=== PATIENT | female | born 1970 | race Caucasian/White ===

== ENCOUNTER → 2017-11-26 12:59 | Outpatient (CLI) | payer BC, SELFPAY ==
--- NOTE | 2017-11-26 13:00 | RAD_ITS ---
STUDY: X-RAY CHEST REASON FOR EXAM: Female, 47 years old. Cough, 2 weeks TECHNIQUE: PA and lateral chest COMPARISON: 10/06/2014. FINDINGS: The lungs are clear and expanded. Normal cardiomediastinal silhouette, jerry and pleural margins. No acute osseous or upper abdominal process. RAD/Chest PA and Lateral IMPRESSION: No acute cardiopulmonary process. Electronically Signed: Berto Mahoney, at 13:31 EDT Tel , Service support ,
== END ==
PROVIDERS: Family Provider Internal Medicine; PCP Internal Medicine; Visit Provider Internal Medicine
DX: R05 Cough (principal)
CPT/HCPCS: 71046

== ENCOUNTER → 2020-11-29 10:24 | Outpatient (CLI) | payer BC, SELFPAY ==
[2017-04-27 14:34] VITALS: BMI 33.7
== END ==
PROVIDERS: PCP Internal Medicine; Visit Provider Ophthalmology
DX: H04.129 Dry eye syndrome of unspecified lacrimal gland (principal)
CPT/HCPCS: 36415

== ENCOUNTER 2021-04-24 06:01 | Day surgery (SDC) | payer BC, SELFPAY ==
[2021-04-24] VITALS (7 sets, daily range): BP systolic 97–122; BP diastolic 55–76; PULSE 64–72; RESP 14–106; TEMP 35.9–36.2; O2SAT 97–100; BMI 28.8
[2021-04-24] MEDS: Lactated Ringers 1,000 ML 15 ML IV (06:22)
[2021-04-24 06:30] LABS: Bedside Glucose 111 mg/dL (70-110)
--- NOTE | 2021-04-24 07:00 | IMM_PTH ---
PATIENT: CARINE MANN LOC: EN U#:[id number] AGE/SX: 50/F ROOM: RE04/24/[address]: Dr. Mack Godinez DO : 1970 BED: DIS: 04/24/2021 SPEC #: [id number] RECD: 04/24/21 13:36 STATUS: SOUMerrick REQ #: [id number] MELISA: 04/24/21 07:[address]: Mack Godinez DEPT: IMMUNOHISTOCHEMISTRY RECD BY: Kim Claudio ENTERED: 04/24/21 13:36 SP TYPE: IMMUNO OTHR DR: Dr. Albertina Canela DO Tissues: B - Stomach, NOS Procedures: H Pylori (initial) PHYSICIAN & INSTITUTION [address] [address] SPECIMEN INFORMATION: Tissue Source: B ? Gastric antrum biopsy Clinical Info: Abdominal pain, nausea and vomiting Specimen Number: [id number] CPT code: 88436 METHODOLOGY: Deparaffinized sections of prefer/formalin-fixed tissue or PAP/DQ stained slides are incubated with monoclonal/polyclonal antibodies/oligonucleotide probes. Localization is made via biotin free immunoperoxidase method. Appropriate controls are performed and reacted as expected. Results on target cell population are indicated in the following table: RESULTS: ANTIBODY / CLONE RESULT Block B H Pylori (polyclonal) negative These tests were developed and their performance characteristics determined by [facility]. They may not have been cleared or approved by the U.S. Food and Drug Administration. The FDA has determined that such clearance or approval is not necessary. INTERPRETATION: B. Gastric antrum, biopsy: Negative for Helicobacter pylori organisms. SJ:lesly 04/25/2021
--- NOTE | 2021-04-24 07:00 | EGD_PTH ---
PATIENT: CARINE MANN LOC: EN U#:[id number] AGE/SX: 50/F ROOM: RE04/24/[address]: Dr. Mack Godinez DO : 1970 BED: DIS: 04/24/2021 SPEC #: [id number] RECD: 04/24/21 10:37 STATUS: YOSEPH REQ #: [id number] MELISA: 04/24/21 07:[address]: Mack Godinez DEPT: SURGICAL PATHOLOGY RECD BY: Dior Marrufo ENTERED: 04/24/21 12:23 SP TYPE: EGD BIOPSY OT DR: Dr. Albertina Canela DO Tissues: A - Duodenum, NOS B - Gastric mucous membrane C - Gastric mucous membrane D - Esophagus, NOS E - Gastric mucous membrane F - Ileum, NOS G - COLON BIOPSY Procedures: Special Stain Group II Surgery Specimen Level IV Alcian Blue/PAS (control) HEADER OPERATION: Colonoscopy, EGD ([facility]) PRE-OP DIAGNOSIS: Abdominal pain, nausea and vomiting TISSUE SUBMITTED: A ? Duodenum biopsy, B ? Gastric antrum biopsy for H. pylori and path, C ? Gastric body biopsy, D ? Distal esophagus, E ? Gastric cardia biopsy, F ? Terminal ileum biopsy, G ? Random colon biopsies MICROSCOPIC DIAGNOSIS A. Duodenum, biopsy: Fragments of duodenal mucosa, no pathologic diagnosis. B. Gastric antrum, biopsy: Mild gastritis. See microscopic description and comment. C. Gastric body, biopsy: Mild gastritis. See microscopic description. D. Distal esophagus, biopsy: Fragments of gastroesophageal mucosa with moderate chronic inflammation. Intestinal metaplasia (goblet cell metaplasia) not identified. See comment. E. Gastric cardia, biopsy: Mild gastritis. See microscopic description. F. Terminal ileum, biopsy: Fragments of small intestinal mucosa, no pathologic diagnosis. G. Colon, random biopsy: Fragments of colonic mucosa, no pathologic diagnosis. SJ:lesly 04/25/2021 COMMENT B. The results of immunohistochemistry for Helicobacter pylori will be reported separately ([id number]). D. Alcian blue/PAS stain with matched control is used in the evaluation of the specimen. MICROSCOPIC DESCRIPTION Slides are reviewed. B. The specimen shows fragments of gastric mucosa with chronic inflammatory cell infiltrates in the lamina propria consisting of lymphocytes and plasma cells, consistent with mild chronic gastritis. Focal mucosal congestion is noted. C. The specimen shows fragments of gastric mucosa with chronic inflammatory cell infiltrates in the lamina propria consisting of lymphocytes and plasma cells, consistent with mild chronic gastritis. Focal mucosal congestion and hemorrhage are noted. E. The specimen shows fragments of gastric mucosa with chronic inflammatory cell infiltrates in the lamina propria consisting of lymphocytes and plasma cells, consistent with mild chronic gastritis. Focal mucosal congestion and hemorrhage are noted. GROSS DESCRIPTION A - Received in fixative is one container labeled with the patient's name and designated duodenum biopsy. The specimen consists of multiple irregular fragments of light johnson soft tissue that in aggregate measure 1.5 x 0.5 x 0.1 cm. The specimen is totally submitted in one cassette. B - Received in fixative is one container labeled with the patient's name and designated gastric antrum biopsy. The specimen consists of multiple irregular fragments of light johnson soft tissue that in aggregate measure 0.7 x 0.4 x 0.1 cm. The specimen is totally submitted in one cassette. C - Received in fixative is one container labeled with the patient's name and designated gastric body biopsy. The specimen consists of multiple irregular fragments of light johnson soft tissue that in aggregate measure 0.8 x 0.5 x 0.1 cm. The specimen is totally submitted in one cassette. D - Received in fixative is one container labeled with the patient's name and designated distal esophagus biopsy. The specimen consists of multiple irregular fragments of light johnson soft tissue that in aggregate measure 0.5 x 0.4 x 0.1 cm. The specimen is totally submitted in one cassette. E - Received in fixative is one container labeled with the patient's name and designated gastric cardia biopsy. The specimen consists of multiple irregular fragments of light johnson soft tissue that in aggregate measure 0.6 x 0.5 x .1 cm. The specimen is totally submitted in one cassette. F - Received in fixative is one container labeled with the patient's name and designated terminal ileum biopsy. The specimen consists of multiple irregular fragments of light johnson soft tissue that in aggregate measure 1 x 0.3 x 0.1 cm. The specimen is totally submitted in one cassette. G - Received in fixative is one container labeled with the patient's name and designated random colon biopsy. The specimen consists of multiple irregular fragments of light johnson soft tissue that in aggregate measure 2 x 1 x 0.1 cm. The specimen is totally submitted in one cassette. / AMAIRANI:lesly 04/24/21 TC:3 CPT: 80521 x7, 87790
--- NOTE | 2021-04-24 07:13 | HP.PCM_ITS ---
History and Physical Date of Admission: 04/24/21 50 F who presents to the office today for For the last 8-10 months she has been having difficulty with nausea and vomiting. Nausea and vomiting starts first thing in the morning. She'll get abdominal cramping. BM occurs weekly. Having a hard time with PO intake and medications because of nausea. Reports weight loss based on hose clothes are fitting and how she is feeling. Movement increased nausea. 2004 she had a stroke. 2012 breast cancer treatment, treated with chemotherapy and radiation with lumpectomy and reduction. Taking anastrazole currently, no discussion of stopping. Following this when she bends over she gets nauseous. Neurologist told her to seek more treatment when she started taking Zofran three times a day. Hysterectomy performed 2000 following of final child. Repeat surgery to remove ovary and remove scar tissue that was invading bowel. Had a lot of difficulty with anastrazole with pain and fatigue and bone destruction. Started medical marijuana two years prior to today. She takes two gummies a day and sometimes takes three if it is cold or rainy out. Takes bathes and this makes her feel best. She is having a lot of emotional distress regarding the loss of her mother and brother close together and her aunt is currently in hospice who she is very close to. Recently started trazadone for insomnia. prozac also increased to 40mg. ROS Const Constitutional: Positive for frequent falls, weakness and weight change Eyes Eyes: Positive for blurry vision and eye pain ENT ENT: Positive for hearing loss, tinnitus, nasal congestion and difficulty swallowing Cardio Cardiology: Positive for leg pain with exertion and shortness of breath Gastro GI: Positive for abdominal pain, bloating, change in bowel habits, constipation, heartburn, difficulty swallowing, nausea/dyspepsia and vomiting Musc Musculoskeletal: Positive for abnormal gait, joint pain, back pain, muscle cramps, muscle weakness, stiffness, Arthritis, leg pain at night and leg pain with exertion Neuro Neurology: Positive for abnormal gait, weakness and frequent falls Psych Psychiatric: Positive for anxiety, Positive for depression and Positive for obsessions/compulsions Endo Endocrine: Positive for cold intolerance, heat intolerance, increased thirst/drinking and weight change Exam Const General: cooperative and comfortable Nutritional Appearance: average body habitus and well nourished HENVT Head: normal to inspection Ears: hearing grossly normal bilaterally Nose: external nose normal Face and sinus: normal facial exam Mouth: oral mucosae normal Throat: posterior oropharynx normal Eyes General: appearance normal, both eyes and all related structures Neck Neck: normal visual inspection Chest Chest palpation & inspection: normal inspection of the chest and normal palpation of entire chest wall Resp Effort & Inspection: normal respiratory effort Auscultation: Bilateral: Clear to Auscultation Cardio Palpation: normal PMI Rate: regular rate Rhythm: regular rhythm GI Inspection: normal to inspection Auscultation: normal bowel sounds Percussion: normal to percussion Palpation: no hepatosplenomegaly Skin General: no rashes or lesions noted Neuro General: patient alert Extrem General: normal to inspection Psych Affect: normal affect Quality Reporting Tobacco Screening ([facility] 138) Smoking Status: Never smoker Assessment and Plan Assessment and Plan (1) Abdominal pain: Status: Acute Plan - Dr. Giron Friend, DO: It is possible that her abdominal pain could be functional. She has a lot of reasons to have abdominal pain and will be functional including the of close relatives in September itself can cause a stress gastritis. She does take medical marijuana and I do not think that she has marijuana hyperemesis. But this is in the differential diagnosis. We will look into her upper GI tract to see if there is abnormalities that would lead to a diagnosis in her. In the meantime we will give her medicines for symptomatic abdominal pain. (2) Nausea & vomiting: Status: Acute Plan - Dr. Giron Friend, DO: She has multiple nausea. 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 However, with her history of cancer we should evaluate the upper GI tract to make sure there is distant metastasis as I see breast cancer metastases despite normal imaging. I have re-examined the patient. There are no clinical changes since date of exam.
--- NOTE | 2021-04-24 07:35 | OP.EGD_ITS ---
Patient Name: Ita Souza Procedure Date: 04/24/2021 7:10 AM Date of : 1970 Age: 50 Procedure: Upper GI endoscopy Indications: Dyspepsia Providers: Mack Godinez DO Medicines: See the Anesthesia note for documentation of the administered medications Patient Profile: This is a 50 year old female. Refer to note in patient chart for documentation of history and physical. Patient has symptoms of chronic abdominal cramping, chronic abdominal distention, chronic dyspepsia and chronic nausea. Complications: No immediate complications. Procedure: Pre-Anesthesia Assessment: - Prior to the procedure, a History and Physical was performed, and patient medications and allergies were reviewed. The patient is competent. The risks and benefits of the procedure and the sedation options and risks were discussed with the patient. All questions were answered and informed consent was obtained. Patient identification and proposed procedure were verified by the physician in the pre-procedure area. Mental Status Examination: alert and oriented. Airway Examination: normal oropharyngeal airway and neck mobility. Respiratory Examination: clear to auscultation. CV Examination: normal. Prophylactic Antibiotics: The patient does not require prophylactic antibiotics. Prior Anticoagulants: The patient has taken no previous anticoagulant or antiplatelet agents. After reviewing the risks and benefits, the patient was deemed in satisfactory condition to undergo the procedure. The anesthesia plan was to use moderate sedation / analgesia (conscious sedation). Immediately prior to administration of medications, the patient was re-assessed for adequacy to receive sedatives. The heart rate, respiratory rate, oxygen saturations, blood pressure, adequacy of pulmonary ventilation, and response to care were monitored throughout the procedure. The physical status of the patient was re-assessed after the procedure. After obtaining informed consent, the endoscope was passed under direct vision. Throughout the procedure, the patient's blood pressure, pulse, and oxygen saturations were monitored continuously. The Endoscope was introduced through the mouth, and advanced to the second part of duodenum. The upper GI endoscopy was accomplished without difficulty. The patient tolerated the procedure well. Moderate Sedation: Moderate (conscious) sedation was administered by the endoscopy nurse and supervised by the endoscopist. The patient's oxygen saturation, heart rate, blood pressure and response to care were monitored. Total physician intraservice time was 15 minutes. Scope In: 7:19:59 AM Scope Out: 7:29:40 AM Total Procedure Duration Time 0 hours 9 minutes 41 seconds Findings: LA Grade A (one or more mucosal breaks less than 5 mm, not extending between tops of 2 mucosal folds) esophagitis with no bleeding was found 34 to 35 cm from the incisors. Biopsies were taken with a cold forceps for histology. Verification of patient identification for the specimen was done. Estimated blood loss was minimal. A few localized, 6 mm non-bleeding erosions were found in the cardia. There were no stigmata of recent bleeding. Biopsies were taken with a cold forceps for histology. Verification of patient identification for the specimen was done. Estimated blood loss was minimal. Localized moderate inflammation characterized by congestion (edema), erythema and friability was found in the gastric antrum. Biopsies were taken with a cold forceps for histology. Verification of patient identification for the specimen was done. Estimated blood loss was minimal. Localized prominent gastric folds were found in the gastric body. Biopsies were taken with a cold forceps for histology. Verification of patient identification for the specimen was done. Estimated blood loss was minimal. Scattered moderate inflammation characterized by congestion (edema), erosions and erythema was found in the duodenal bulb, in the first portion of the duodenum, in the second portion of the duodenum and in the third portion of the duodenum. Biopsies were taken with a cold forceps for histology. Verification of patient identification for the specimen was done. Estimated blood loss was minimal. Impression: - LA Grade A reflux esophagitis. Biopsied. - Non-bleeding erosive gastropathy. Biopsied. - Gastritis. Biopsied. - Enlarged gastric folds. Biopsied. - Duodenitis. Biopsied. Recommendation: - Discharge patient to home. - Resume previous diet. - Continue present medications. - Await pathology results. - Repeat upper endoscopy in 1 year for surveillance based on pathology results. - Return to GI office in 1 week. Procedure Code(s): --- Professional --- 86521, Esophagogastroduodenoscopy, flexible, transoral; with biopsy, single or multiple 95068, 59, Moderate sedation services provided by the same physician or other qualified health pulmonary care nurse performing the diagnostic or therapeutic service that the sedation supports, requiring the presence of an independent trained observer to assist in the monitoring of the patient's level of consciousness and physiological status; initial 15 minutes of intraservice time, patient age 5 years or older CPT copyright 2017 [employer]. All rights reserved. The codes documented in this report are preliminary and upon investigative analyst review may be revised to meet current compliance requirements. Mack Godinez DO 04/24/2021 7:34:36 AM This report has been signed electronically. Number of Addenda: 1 Note Initiated On: 04/24/2021 7:10 AM Addendum Number: 1 Addendum Date: 01/01/2022 7:27:27 AM MAC was used instead of moderate sedation for the patient. Mack Godinez DO 01/01/2022 7:27:31 AM This report has been signed electronically.
--- NOTE | 2021-04-24 07:35 | OP.CCLET_ITS ---
01/01/2022 Albertina Canela [address] [place] [address] Re : Upper GI endoscopy procedure for Ita Souza Dear Dr. Canela This procedure was performed on Saturday, April 24, 2021. My impressions and recommendations are as follows: Impressions : - LA Grade A reflux esophagitis. Biopsied. - Non-bleeding erosive gastropathy. Biopsied. - Gastritis. Biopsied. - Enlarged gastric folds. Biopsied. - Duodenitis. Biopsied. Recommendations : - Discharge patient to home. - Resume previous diet. - Continue present medications. - Await pathology results. - Repeat upper endoscopy in 1 year for surveillance based on pathology results. - Return to GI office in 1 week. My findings are described in the full procedure note, which is enclosed. If I can be of further assistance, please feel free to contact me at . Sincerely, Mack Godinez, 04/24/2021 7:34:36 AM This report has been signed electronically.
--- NOTE | 2021-04-24 08:06 | OP.COLON_ITS ---
Patient Name: Ita Souza Procedure Date: 04/24/2021 7:30 AM Date of : 1970 Age: 50 Procedure: Colonoscopy Indications: Evaluation of unexplained GI bleeding Providers: Mack Godinez DO Medicines: Midazolam 2 mg IV, See the Anesthesia note for documentation of the administered medications Patient Profile: This is a 50 year old female. Refer to note in patient chart for documentation of history and physical. Patient has symptoms of chronic abdominal cramping, chronic abdominal distention, chronic dyspepsia and chronic nausea. Last Colonoscopy: more than 3 years ago. Complications: No immediate complications. Procedure: Pre-Anesthesia Assessment: - Prior to the procedure, a History and Physical was performed, and patient medications and allergies were reviewed. The patient is competent. The risks and benefits of the procedure and the sedation options and risks were discussed with the patient. All questions were answered and informed consent was obtained. Patient identification and proposed procedure were verified by the physician in the pre-procedure area. Mental Status Examination: alert and oriented. Airway Examination: normal oropharyngeal airway and neck mobility. Respiratory Examination: clear to auscultation. CV Examination: normal. Prophylactic Antibiotics: The patient does not require prophylactic antibiotics. Prior Anticoagulants: The patient has taken no previous anticoagulant or antiplatelet agents. After reviewing the risks and benefits, the patient was deemed in satisfactory condition to undergo the procedure. The anesthesia plan was to use moderate sedation / analgesia (conscious sedation). Immediately prior to administration of medications, the patient was re-assessed for adequacy to receive sedatives. The heart rate, respiratory rate, oxygen saturations, blood pressure, adequacy of pulmonary ventilation, and response to care were monitored throughout the procedure. The physical status of the patient was re-assessed after the procedure. After I obtained informed consent, the scope was passed under direct vision. Throughout the procedure, the patient's blood pressure, pulse, and oxygen saturations were monitored continuously. The colonoscope was introduced through the anus and advanced to the terminal ileum. The colonoscopy was performed without difficulty. The patient tolerated the procedure well. The quality of the bowel preparation was good. Moderate Sedation: Moderate (conscious) sedation was administered by the endoscopy nurse and supervised by the endoscopist. The patient's oxygen saturation, heart rate, blood pressure and response to care were monitored. Total physician intraservice time was 15 minutes. Scope In: 7:37:22 AM Scope Withdrawal Time 0 hours 15 minutes 0 seconds Scope Out: 7:56:11 AM Total Procedure Duration Time 0 hours 18 minutes 49 seconds Findings: The perianal and digital rectal examinations were normal. An area of mildly congested mucosa was found in the sigmoid colon, in the descending colon, in the transverse colon and in the ascending colon. Biopsies were taken with a cold forceps for histology. Verification of patient identification for the specimen was done. Estimated blood loss was minimal. A scattered area of the terminal ileum was congested. Biopsies were taken with a cold forceps for histology. Verification of patient identification for the specimen was done. Estimated blood loss was minimal. Impression: - Congested mucosa in the sigmoid colon, in the descending colon, in the transverse colon and in the ascending colon. Biopsied. - Congested mucosa in the terminal ileum. Biopsied. Recommendation: - Discharge patient to home. - Resume previous diet. - Continue present medications. - Await pathology results. - Repeat colonoscopy in 5 years for surveillance. - Return to GI office in 2 weeks. Procedure Code(s): --- Professional --- 16704, Colonoscopy, flexible; with biopsy, single or multiple 35331, 59, Moderate sedation services provided by the same physician or other qualified health career development consultant performing the diagnostic or therapeutic service that the sedation supports, requiring the presence of an independent trained observer to assist in the monitoring of the patient's level of consciousness and physiological status; initial 15 minutes of intraservice time, patient age 5 years or older CPT copyright 2017 [employer]. All rights reserved. The codes documented in this report are preliminary and upon business investor review may be revised to meet current compliance requirements. Mack Godinez DO 04/24/2021 8:05:29 AM This report has been signed electronically. Number of Addenda: 1 Note Initiated On: 04/24/2021 7:30 AM Addendum Number: 1 Addendum Date: 01/01/2022 7:27:45 AM MAC was used instead of moderate sedation for the patient. Mack Godinez DO 01/01/2022 7:27:50 AM This report has been signed electronically.
--- NOTE | 2021-04-24 08:07 | OP.CCLET_ITS ---
01/01/2022 Albertina Canela [address] [place] [address] Re : Colonoscopy procedure for Itanelson Souza Dear Dr. Canela This procedure was performed on Saturday, April 24, 2021. My impressions and recommendations are as follows: Impressions : - Congested mucosa in the sigmoid colon, in the descending colon, in the transverse colon and in the ascending colon. Biopsied. - Congested mucosa in the terminal ileum. Biopsied. Recommendations : - Discharge patient to home. - Resume previous diet. - Continue present medications. - Await pathology results. - Repeat colonoscopy in 5 years for surveillance. - Return to GI office in 2 weeks. My findings are described in the full procedure note, which is enclosed. If I can be of further assistance, please feel free to contact me at . Sincerely, Mack Godinez, 04/24/2021 8:05:29 AM This report has been signed electronically.
== END 2021-04-24 09:15 | disposition home or self-care (01) ==
LOC: EN 06:03 → AC 06:03
PROVIDERS: PCP Internal Medicine; Referring Provider Internal Medicine; Visit Provider Internal Medicine Gastroenterology
PROC: 0DJD8ZZ Inspection of Lower Intestinal Tract, Via Natural or Artificial Opening Endoscopic (ICD-10-PCS; CPT 45378; principal; 2021-04-24 06:55)
DX: K29.70 Gastritis, unspecified, without bleeding (principal); K29.80 Duodenitis without bleeding; K21.00 Gastro-esophageal reflux disease with esophagitis, without bleeding; K31.9 Disease of stomach and duodenum, unspecified; R29.6 Repeated falls; M19.90 Unspecified osteoarthritis, unspecified site; F32.A Depression, unspecified; F41.9 Anxiety disorder, unspecified; Z86.73 Personal history of transient ischemic attack (TIA), and cerebral infarction without residual deficits; Z85.3 Personal history of malignant neoplasm of breast; Z92.3 Personal history of irradiation; Z92.21 Personal history of antineoplastic chemotherapy
CPT/HCPCS: 43239; 45380; 82962; 88305; 88313; 88342; J7120; J2405

== ENCOUNTER 2021-05-02 13:37 | Outpatient (CLI) | payer SELFPAY ==
[2021-05-07 10:08] LABS: Endomysial Antibody IgA Negative (Negative); Immunoglobulin A 106 mg/dL (87-352)
[2021-05-07 11:38] LABS: H. PYLORI STOOL AG Negative (Negative); t-Transglutaminase IgA <2 U/mL (0-3)
== END 2021-05-02 23:59 | disposition short-term general hospital (02) ==
PROVIDERS: PCP Internal Medicine; Referring Provider Internal Medicine Gastroenterology; Visit Provider Internal Medicine Gastroenterology
DX: K29.60 Other gastritis without bleeding (principal)
CPT/HCPCS: 36415; 82784; 83516; 86255

== ENCOUNTER 2021-05-09 15:45 | Outpatient (CLI) | payer BC, SELFPAY ==
[2021-05-09 16:44] LABS: LDH 144 U/L (84-246)
[2021-05-13 14:31] LABS: Gastrin, Serum 245 pg/mL (0-115)
== END 2021-05-09 23:59 | disposition short-term general hospital (02) ==
LOC: LAB 15:47
PROVIDERS: PCP Internal Medicine; Visit Provider Nurse Practitioner Adult Health
DX: Q40.3 Congenital malformation of stomach, unspecified (principal)
CPT/HCPCS: 36415; 82378; 82941; 83615

== ENCOUNTER → 2022-03-07 | Outpatient (CLI) | payer OTHER, SELFPAY ==
[2022-03-11 22:19] LABS: Gastrin, Serum 227 pg/mL (0-115)
== END | disposition home or self-care (01) ==
PROVIDERS: PCP Internal Medicine; Referring Provider Nurse Practitioner Adult Health; Visit Provider Nurse Practitioner Adult Health
DX: Q40.3 Congenital malformation of stomach, unspecified (principal); E16.4 Increased secretion of gastrin
CPT/HCPCS: 36415; 82941

== ENCOUNTER → 2022-03-18 | Outpatient (CLI) | payer OTHER, SELFPAY ==
--- NOTE | 2022-03-18 12:19 | NM_ITS ---
CLINICAL: 51-year-old diabetic female with history of chronic nausea. SEMI-SOLID PHASE 99m Tc SULFUR COLLOID GASTRIC EMPTYING STUDY COMPARISON: None available FINDINGS: The patient was administered 0.9 mCi of 99m Tc sulfur colloid mixed with oatmeal and consumed per os. Image acquisitions in the anterior-posterior projections were obtained for 60 minutes. There is prompt visualization of the stomach. There is no gastroesophageal reflux identified. The T ? emptying was calculated to be 41.53 minutes, (Normal: 12-56 minutes). NM/Gastric Emptying Study IMPRESSION: 1. NORMAL 99m Tc sulfur colloid semi-solid phase (oatmeal) gastric emptying imaging examination. A. There is normal and preserved semi-solid phase gastric emptying compared to normal controls. (Hung et al, J Nucl Med Tech 38: 186, 2010). Electronically Signed: Berto Wood, at 21:50 EST ,
== END | disposition home or self-care (01) ==
LOC: NM 12:17
PROVIDERS: PCP Internal Medicine; Visit Provider Nurse Practitioner Adult Health
DX: R11.2 Nausea with vomiting, unspecified (principal); Q40.3 Congenital malformation of stomach, unspecified; R68.81 Early satiety
CPT/HCPCS: 78264; A9541

== ENCOUNTER 2022-09-30 07:52 | Emergency (ER) | payer BC, SELFPAY ==
[2022-09-30 07:53] VITALS: BP 153/118; PULSE 64; RESP 18; TEMP 36.6; O2SAT 100; BMI 18.4
--- NOTE | 2022-09-30 08:22 | EX.ED.DYSGE1 ---
HPI History of Present Illness Chief Complaint: Syncope [facility] Medical History (Updated 09/30/22 @ 11:[address] Abhilash Ferro, DO) Abdominal pain Anxiety Arthritis Back pain Cancer Cardiology follow-up encounter Chronic idiopathic constipation Depression Diabetes Dietary restriction Fatty liver Gastric reflux High cholesterol History of carotid artery dissection History of echocardiogram History of Holter monitoring History of ulceration Hx of sinus tachycardia Hypertension Leg cramps Migraine headache Nausea & vomiting Non-smoker Pain Restless legs Shortness of breath on exertion Stroke/cerebrovascular accident Syncope Wears glasses Wears hearing aid Home Medications Liraglutide [Victoza 2-Georgi] 0.6 mg SQ QHS 09/02/13 [History Last Taken 04/23/21] bupropion HCl 300 mg 24 hr tablet, extended release 300 mg PO QAM 03/29/21 [History Last Taken 04/23/21] empagliflozin 25 mg tablet (Jardiance) 25 mg PO DAILY 03/29/21 [History Last Taken 04/23/21] ivabradine 7.5 mg tablet (Corlanor) 7.5 mg PO BID HEART 03/29/21 [History Last Taken 04/23/21] metformin 1,000 mg tablet 1,000 mg PO BID 03/29/21 [History Last Taken 04/23/21] metoprolol succinate 25 mg tablet,extended release 24 hr 25 mg PO BID 03/29/21 [History Last Taken 04/23/21] topiramate 200 mg capsule,extended release 24 hr (Trokendi XR) 200 mg PO DAILY 03/29/21 [History Last Taken 04/23/21] valacyclovir 1 gram tablet 1,000 mg PO DAILY 03/29/21 [History Last Taken 04/23/21] esomeprazole magnesium 40 mg capsule,delayed release 40 mg PO DAILY 03/04/22 [History Last Taken Unknown] ondansetron 8 mg disintegrating tablet 8 mg PO Q8H PRN PRN Nausea #90 tabs 06/17/22 [Rx Last Taken Unknown] buspirone 15 mg tablet 15 mg PO TID #90 tabs 07/16/22 [Rx Last Taken Unknown] aspirin 325 mg tablet 325 mg PO DAILY 09/12/22 [History Last Taken Unknown] calcium 600 mg capsule 600 mg PO DINNER 09/12/22 [History Last Taken Unknown] multivitamin 1 cap PO DAILY 09/12/22 [History Last Taken Unknown] potassium 99 mg tablet 99 mg PO DAILY 09/12/22 [History Last Taken Unknown] turmeric 400 mg capsule 400 mg PO DAILY 09/12/22 [History Last Taken Unknown] oxycodone 5 mg capsule 5 mg PO Q6H PRN pain 3 days #12 caps 09/30/22 [Rx Last Taken Unknown] Allergy/AdvReac Type Severity Reaction Status Date / Time oxycodone HCl [From Percocet] AdvReac Itching Verified 09/30/22 07:57 Surgical History History of History of laparoscopic cholecystectomy Hx of colonoscopy Hx of hysterectomy, total Hx of partial mastectomy Hx of rhinoplasty Social History (Reviewed 07/09/22 @ 13:31 by Kayy Dominique [employer]UCATION TEACHER, [employer]OCATIONAL EDUCATION TEACHER-C) Smoking Status: Never smoker EXAM Physical Exam Const Vital Signs: 09/30/22 07:53 09/30/22 07:58 09/30/22 08:31 Temperature 97.9 F Temperature Source Temporal Pulse Rate 64 Respiratory Rate 18 Respiratory Effort Normal Blood Pressure 153/118 H Blood Pressure Mean 129 Pulse Ox 100 Oxygen Delivery Method Room Air Room Air 09/30/22 10:02 09/30/22 12:17 Temperature Temperature Source Pulse Rate 69 74 Respiratory Rate 18 18 Respiratory Effort Blood Pressure 135/69 H 131/75 H Blood Pressure Mean 91 Pulse Ox 99 99 Oxygen Delivery Method Room Air [facility] MDM MDM Narrative Medical decision making narrative: HISTORY OF PRESENT ILLNESS: 51-year-old female here with concern for syncope. She states she was letting her dogs out. She states her blood pressure dropped. She notes right ankle pain. She thinks she may be dehydrated. She states she has chronic nausea and this is affecting her ability to take things by mouth. She denies any vomiting. Denies any fever. Denies any chest pain. She denies any shortness of breath. Denies any palpitations. Denies any headache prior to passing out. Denies any abdominal pain prior to passing out. Denies any family history of connective tissue disorders. REVIEW OF SYSTEMS: Pertinent positives: Syncope, right ankle pain Pertinent negatives: PHYSICAL EXAM: Nursing triage notes reviewed, Vital signs reviewed Constitutional: please see mdm HENT: MMM, atraumatic, normocephalic, no cephalhematoma Eyes: Pupils equal round and reactive to light, Extraocular muscles intact Neck: No stridor, no JVD, full neck ROM Lungs: Clear to auscultation, No wheezing or rales. No increased work of breathing, no conversational dyspnea, no accessory muscle use, no nasal flaring. No respiratory distress noted Heart: Regular rate and rhythm, No murmurs, No rubs and No gallops, 2+ distal pulses (radial, femoral, posterior tibial) in all extremities Abdomen: Soft, there is no tenderness, rigidity, rebound or guarding, no obvious peritoneal signs, no palpable pulsatile abdominal masses, no auscultated abdominal bruit : No CVAT Extremities: Edema, ecchymosis noted to lateral malleolus of the right ankle, compartments are soft Neuro: Alert and oriented x3, neuro exam at baseline, cranial nerves II through XII are intact. No pain with extraocular muscle movement. There is negative test of skew. Normal speech. 5 of 5 strength in upper and lower extremities in flexion extension. Intact sensation to light touch in upper and lower extremity dermatomes. No truncal or extremity ataxia. No dysdiadochokinesia. Normal gait. 2+ reflexes. No meningeal signs. Negative Babinski. NIH of 0. My back neuro exam Skin: No rash or lesions noted, no evidence of open fracture MEDICAL DECISION MAKING: Chief Complaint: Ankle pain, syncope External records reviewed: No recent cardiac catheterizations, stress test or echocardiograms noted in the chart Factors affecting care: Type 2 diabetes, GERD Social determinants of health: None History obtained from others: The patient's family member Consults: None ALL IMAGES HAVE BEEN PERSONALLY REVIEWED AND INTERPRETED BY MYSELF. MDM Narrative: I considered the following differential diagnosis: Arrhythmia, anemia, myocardial ischemia, dehydration, ankle fracture dislocation or contusion I obtained a broad lab and imaging work-up to further elucidate the etiology the patient complaints. Initial EKG and troponin were negative. Will send delta troponin given proximity to syncope. There is no significant anemia or electrolyte abnormalities. X-ray showed no evidence of heart failure or pulmonary edema or pneumonia as potential precipitants. Patient was kept on telemetry monitoring no significant events. She remained hemodynamically stable and felt better after fluid resuscitation. I suspect the patient's syncope is likely secondary to dehydration. There is no evidence of any life or limb threatening etiology. Do not think patient benefit from admission at this time. She was given instruction to follow with her primary care physician for further outpatient evaluation. In terms of patient's ankle pain. I obtained an x-ray of the right ankle showed evidence of a bimalleolar fracture by my read. Will wait for radiology's final read. Radiology agreed. We will place the patient in a splint give crutches, recommend nonweightbearing and give close orthopedic follow-up as well as appropriate pain medicine for home-going. The patient and/or family, caregivers express understanding. The patient and/or family, caregivers agrees with the plan. Total critical care time today provided was at least 0 minutes. This excludes separately billable procedures. Critical care time if documented is secondary to the patient having high probability of clinically significant/life threatening deterioration in the patient's condition which required my urgent intervention. Shared decision making: I will have a discussion with the patient and or visitors regarding risk/benefits of further testing or admission. They will be made aware of of the risk/benefits inherent in this decision they will be given the opportunity to voice understanding. Lab Data Attestation: I reviewed the patient's lab results. Lab results narrative: EKG with normal sinus rhythm, occasional PVCs, normal axis, prolonged QT, no STEMI no obvious arrhythmia such as WPW, ARVD or Brugada CBC with mild anemia, no leukocytosis to suggest systemic inflammation, no thrombocytopenia BMP without evidence of significant electrolyte abnormalities, no anion gap, no acute kidney injury. Troponin is negative, no evidence of myocardial ischemia Labs: Laboratory Results - last 24 hr 09/30/22 09/30/22 09/30/22 08:20 08:20 10:39 WBC 5.4 RBC 4.27 Hgb 11.6 L Hct 38.1 MCV 89.2 MCH 27.2 MCHC 30.4 L RDW Std Deviation 47.3 H RDW Coeff of Tai 14.8 H Plt Count 172 MPV 10.3 Immature Gran % (Auto) 0.000 Neut % (Auto) 43.7 L Lymph % (Auto) 47.5 H Kinney % (Auto) 6.7 Eos % (Auto) 1.5 Baso % (Auto) 0.6 Absolute Neuts (auto) 2.4 Absolute Lymphs (auto) 2.57 Nucleated RBC % 0 Sodium 140 Potassium 3.9 Chloride 111 H Carbon Dioxide 25.0 Anion Gap 4 L BUN 15 Creatinine 1.06 H Estim Creat Clear Calc 47.83 Est GFR (MDRD) Af Amer 70 Est GFR (MDRD) Non-Af 58 L BUN/Creatinine Ratio 14.2 Glucose 125 H Calcium 8.8 Troponin I High Sens < 3 L < 3 L Radiography Chest X-Ray - ED: Read by ED Physician Diagnostic Testing: Clinical Impression(s) from Imaging Studies Chest X-Ray 09/30/22 08:26 IMPRESSION: Normal x-ray examination of the chest. Electronically Signed: Giuseppe Serrano MD at 8:49 EDT , Ankle X-Ray 09/30/22 08:53 IMPRESSION: Nondisplaced oblique fracture of the medial malleolus and a transverse fracture at the tip of the lateral malleolus with overlying soft tissue swelling. Electronically Signed: Giuseppe Serrano MD at 9:56 EDT , Chest x-ray personally viewed myself shows no evidence of cardiomegaly, pulmonary edema or pneumonia X-ray of the right ankle personally viewed myself shows evidence of likely bimalleolar fracture. Will wait for radiology final read Procedures Lower Extremity Splints Lower Extremity Splint: Orthoglass Splint Fabrication: Fabricated Location: Right Discharge Plan Triage Chief Complaint: Syncope ED Provider: Abhilash Ferro Dx/Rx/DC Orders Clinical Impression: Syncope, Ankle fracture, Acute dehydration, Nausea Instructions: Causes of Syncope, ED Ankle Fracture Prescriptions: New oxycodone 5 mg capsule 5 mg PO Q6H PRN (Reason: pain) 3 Days Qty: 12 0RF No Action bupropion HCl 300 mg tablet extended release 24 hr 300 mg PO QAM Corlanor 7.5 mg tablet 7.5 mg PO BID Rx Instructions: must administer with a meal/food Jardiance 25 mg tablet 25 mg PO DAILY metformin 1,000 mg tablet 1,000 mg PO BID metoprolol succinate 25 mg tablet extended release 24 hr 25 mg PO BID Trokendi XR 200 mg capsule,extended release 24hr 200 mg PO DAILY valacyclovir 1 gram tablet 1,000 mg PO DAILY esomeprazole magnesium 40 mg capsule,delayed release(DR/EC) 40 mg PO DAILY Liraglutide [Victoza 2-Georgi] 0.6 MG/0.1 ML Ml 0.6 mg SQ QHS calcium 600 mg Capsule 600 mg PO DINNER aspirin 325 mg Tablet 325 mg PO DAILY potassium 99 mg Tablet 99 mg PO DAILY multivitamin Capsule 1 cap PO DAILY turmeric 400 mg Capsule 400 mg PO DAILY ondansetron 8 mg tablet,disintegrating 8 mg PO Q8H PRN PRN (Reason: Nausea) Qty: 90 2RF buspirone 15 mg tablet 15 mg PO TID Qty: 90 5RF Stand Alone Forms: ED Work / School Excuse Primary Care Provider: Albertina Canela Referrals: Albertina Canela DO [Primary Care Provider] - Tunde Mcdaniel MD [Med Staff - Active Staff] - Activity Restrictions/Additional Instructions: Thank you for trusting us with your care today! Please take Tylenol (2 pills, 650 mg), ibuprofen (2 pills, 400 mg) every 6 hours as needed for pain and fever control. If this regimen does not control your pain please take oral oxycodone. Please take Claritin or Zyrtec prior to taking oxycodone to relieve itching Please return to the emergency department if your symptoms change or worsen. Specifically if you develop chest pain, shortness of breath, if you lose consciousness, you develop vomiting. In terms of her ankle fracture please return if develop discoloration of the involved extremity, pain that is not controlled by the home regiment, loss of sensation or loss of movement. Please attempt to limit weightbearing on the involved extremity. Please follow with your primary care physician for further outpatient evaluation and management. Please follow-up with orthopedics Dr. Mcdaniel. His information has been provided to you. Please follow-up in the next 1 to 2 weeks for outpatient evaluation and further intervention. Disposition Disposition: Home, Self Care Discharge Date/Time: 09/30/22 12:20
--- NOTE | 2022-09-30 08:26 | RAD_ITS ---
STUDY: X-RAY CHEST REASON FOR EXAM: Female, 51 years old. Chest pain TECHNIQUE: Single AP portable view of the chest. COMPARISON: Comparison is made with prior study November 26, 2017. FINDINGS: EKG electrodes are seen. The lungs are clear and expanded. There is no demonstrated pleural abnormality. Normal size heart. Normal mediastinum and jerry. Normal visualized pulmonary arteries. Normal visualized aortic arch and descending thoracic aorta. Normal visualized thoracic spine. Normal visualized ribs, clavicles, and shoulders. There is no demonstrated abnormality of the visualized soft tissue structures of the upper abdomen. RAD/Chest 1 View (Portable) IMPRESSION: Normal x-ray examination of the chest. Electronically Signed: Giuseppe Serrano MD at 8:49 EDT ,
--- NOTE | 2022-09-30 08:30 | EKG12_ITS ---
Test Reason : SYNCOPE Blood Pressure : / mmHG Vent. Rate : 071 BPM Atrial Rate : 071 BPM P-R Int : 180 ms QRS Dur : 080 ms QT Int : 454 ms P-R-T Axes : 047 007 058 degrees QTc Int : 493 ms Sinus rhythm with occasional Premature ventricular complexes Otherwise normal ECG Confirmed by DANIELLE ZEPEDA, ROMAIN ([id number]), assistant editor KELLY REY ([id number]) on 10/01/2022 9:05:36 AM Referred By: Confirmed By:ROMAIN SANTOS MD
[2022-09-30 08:33] LABS: Absolute Lymphocyte Count 2.57 X10^3/uL (0.83-4.51); Absolute Neutrophil Count 2.4 X10^3/uL (2.0-7.7); Basophil# 0.03 X10^3/uL; Basophil% 0.6 % (0-1); Eosinophil# 0.08 X10^3/uL; Eosinophils% 1.5 % (0-5); Hematocrit 38.1 % (37-47); Hemoglobin 11.6 g/dL (12.0-15.0); Lymphocyte # 2.57 X10^3/ul (0.83-4.51); Lymphocyte % 47.5 % (19-41); Mean Corp Hgb Conc 30.4 g/dL (32-36); Mean Corpuscular Hgb 27.2 pg (27.0-32.0); Mean Corpuscular Volume 89.2 fL (81-99); Mean Platelet Vol. 10.3 fl (6.2-12.0); Monocyte# 0.36 X10^3/uL; Monocyte% 6.7 % (0-10); NRBC Flagged by Analyzer 0 % (0-5); Neutrophil # 2.37 X10^3/uL (2.7-7.7); Neutrophil % 43.7 % (47-70); Platelet Count 172 K/mm3 (150-450); RBC Distribution Width CV 14.8 % (11.6-14.6); RBC Distribution Width SD 47.3 fl (35.1-43.9); Red Blood Count 4.27 M/mm3 (4.2-5.4); White Blood Count 5.4 K/mm3 (4.4-11.0)
[2022-09-30 08:50] LABS: Anion Gap 4 (5-15); BUN 15 mg/dL (7-18); BUN/Creat Ratio 14.2 RATIO (10-20); Calcium,Total 8.8 mg/dL (8.5-10.1); Chloride 111 mmol/L (98-107); Creatinine, Serum 1.06 mg/dL (0.55-1.02); EST Glomerular Filtration Rate 58 mL/min (>60); Est Glom Filt Rate - Afr Amer 70 mL/min (>60); Estimated Creatinine Clearance 47.83 ml/min; Glucose 125 mg/dL (74-106); Potassium 3.9 mmol/L (3.5-5.1); Sodium Level 140 mmol/L (136-145); Troponin-I HS (w/2H Reflex) < 3 pg/mL (3.0-54.0)
--- NOTE | 2022-09-30 08:53 | RAD_ITS ---
STUDY: X-RAY - RIGHT ANKLE REASON FOR EXAM: Female, 51 years old. Pain following a fall. TECHNIQUE: 3 view(s) of the ankle. COMPARISON: None. FINDINGS: Normal visualized distal tibia and fibula. Nondisplaced oblique fracture through the medial malleolus of the distal tibia. Nondisplaced transverse fracture at the tip of the lateral malleolus. Normal tibiotalar articulation and ankle mortise. Plantar spur. The visualized subtalar, talonavicular, calcaneocuboid and tarsal articulations are normal. Soft tissue swelling. RAD/Ankle min 3 Views IMPRESSION: Nondisplaced oblique fracture of the medial malleolus and a transverse fracture at the tip of the lateral malleolus with overlying soft tissue swelling. Electronically Signed: Giuseppe Serrano MD at 9:56 EDT ,
[2022-09-30] MEDS: 0.9% Normal Saline 1,000 ML 999 ML IV (09:09)
[2022-09-30] MEDS: Ondansetron 4 MG/2 ML Vial IV (09:53)
[2022-09-30] MEDS: Ketorolac 15 MG/ML Vial IV (09:53)
[2022-09-30 10:02] VITALS: BP 135/69; PULSE 69; RESP 18; O2SAT 99
[2022-09-30 10:29] LABS: Reflex Troponin-HS? (from REC) Y
[2022-09-30 11:03] LABS: Troponin-I HS < 3 pg/mL (3.0-54.0)
[2022-09-30] MEDS: Morphine 4 MG/ML Syringe IV (11:28)
[2022-09-30 12:17] VITALS: BP 131/75; PULSE 74; RESP 18; O2SAT 99
== END 2022-09-30 12:20 | disposition home or self-care (01) ==
PROVIDERS: Emergency Provider Emergency Medicine; PCP Internal Medicine; Visit Provider Emergency Medicine
DX: S82.844A Nondisplaced bimalleolar fracture of right lower leg, initial encounter for closed fracture (principal); E11.9 Type 2 diabetes mellitus without complications; R55 Syncope and collapse; X58.XXXA Exposure to other specified factors, initial encounter; I10 Essential (primary) hypertension; E78.00 Pure hypercholesterolemia, unspecified; K21.9 Gastro-esophageal reflux disease without esophagitis; E86.0 Dehydration; Z79.84 Long term (current) use of oral hypoglycemic drugs; Z79.899 Other long term (current) drug therapy; Z86.73 Personal history of transient ischemic attack (TIA), and cerebral infarction without residual deficits
CPT/HCPCS: 29515; 71045; 73610; 80048; 84484; 85025; 93005; 96361; 96374; 96375; 99285; J7030; A4216; J2405

== ENCOUNTER → 2024-03-16 | Outpatient (CLI) | payer OTHER, SELFPAY | END | disposition home or self-care (01) | LOC: PSN 12:01 | PROVIDERS: PCP Internal Medicine; Visit Provider Internal Medicine | DX: M79.604 Pain in right leg (principal) | CPT/HCPCS: 95886; 95911 ==